=== PATIENT | female | born 1945 | race Caucasian/White ===

== ENCOUNTER → 2023-01-02 | Outpatient (CLI) | payer OTHER, SELFPAY ==
[2023-01-02 16:27] LABS: Erythrocyte Sedimentation Rate 22 mm/hr (0-30)
[2023-01-02 17:13] LABS: CRP < 2.90 mg/L (0.0-3.0); Free T3 2.6 pg/mL (2.18-3.98); LDH 205 U/L (84-246); T4 Free Direct 1.04 ng/dL (0.76-1.46); Thyroid Stim Hormone (TSH) 1.65 uIU/mL (0.358-3.74)
[2023-01-05 15:08] LABS: Endomysial Antibody IgA Negative (Negative); Immunoglobulin A 223 mg/dL (64-422); t-Transglutaminase IgA <2 U/mL (0-3)
[2023-01-07 22:07] LABS: Beef <0.10 kU/L (Class 0); Chocolate <0.10 kU/L (Class 0); Clam <0.10 kU/L (Class 0); Codfish <0.10 kU/L (Class 0); Corn <0.10 kU/L (Class 0); Egg, White <0.10 kU/L (Class 0); Egg, Whole <0.10 kU/L (Class 0); Milk (Cow) <0.10 kU/L (Class 0); Peanut <0.10 kU/L (Class 0); Pork <0.10 kU/L (Class 0); SCALLOP <0.10 kU/L (Class 0); SESAME SEED <0.10 kU/L (Class 0); Shrimp <0.10 kU/L (Class 0); Soybean <0.10 kU/L (Class 0); Walnut, (Food) <0.10 kU/L (Class 0); Wheat <0.10 kU/L (Class 0)
[2023-01-08 00:07] LABS: Angiotensin Convert Enzyme 62 U/L (14-82); Cytoplasmic Ab (C-ANCA) <1:20 titer (Neg:<1:20); Dilute Prothrombin Time (dPT) 33.3 sec (0.0-47.6); Dilute Russell Viper Venom 35.9 sec (0.0-47.0); EBV Nuclear Antigen IgG < 18.0 U/mL (0.0-17.9); Immunoglobulin A 229 mg/dL (64-422); Immunoglobulin E 26 IU/mL (6-495); Immunoglobulin G 902 mg/dL (586-1602); Immunoglobulin M 59 mg/dL (26-217); Interpretation Comment: (.); PTT-LA 36.6 sec (0.0-43.5); Perinuclear Ab (P-ANCA) <1:20 titer (Neg:<1:20); Thrombin Time 18.3 sec (0.0-23.0); dPT Confirm Ratio 1.03 Ratio (0.00-1.34)
== END | disposition home or self-care (01) ==
LOC: LAB 15:41
PROVIDERS: PCP Internal Medicine; Referring Provider Internal Medicine Gastroenterology; Visit Provider Internal Medicine Gastroenterology
DX: R13.10 Dysphagia, unspecified (principal)
CPT/HCPCS: 36415; 82164; 82784; 82785; 83516; 83615; 84439; 84443; 84481; 85652; 86003; 86005; 86140; 86255; 86256; 86644; 86664

== ENCOUNTER → 2023-02-03 | Outpatient (CLI) | payer OTHER, SELFPAY | END | disposition home or self-care (01) | LOC: RAD 12:44 | PROVIDERS: PCP Internal Medicine; Referring Provider Internal Medicine Gastroenterology; Visit Provider Internal Medicine Gastroenterology | DX: R13.10 Dysphagia, unspecified (principal) | CPT/HCPCS: 74230 ==

== ENCOUNTER 2023-04-15 09:01 | Day surgery (SDC) | payer MEDICARE, SELFPAY ==
--- NOTE | 2023-02-03 14:14 | SP.MBSS_ITS ---
Modified Barium Swallow Patient Information Study Date: 02/03/23 Study Time: 13:00 Direct Billable Minutes: 90 Total Minutes procedure & reportin Diagnosis: Dysphagia R13.10 Referring Physician: Cam Cain Reason for Referral: Objectively assess swallow function, risk for aspiration and to determine recommendations for LRD and compensatory strategies to improve safety of swallow. Medical History: Cecelia MALIK is a 77 F who was referred by Dr. Cain d/t worsening dysphagia. Patient reports coughing w/ food and drink, feeling of food being caught, burning sensation in throat and difficulty breathing when eating. Patient reports sx of GERD and dysphagia for many years, however it has gotten worse overtime. Does not take any medications including OTC. [employer] did notice significant tremors limiting ability to self feed, patient relates tremors increase w/ anxiety. Does not know what causes these tremors. Dr. Cain reported differential diagnosis for esophageal dysphagia does include eosinophilic esophagitis, esophageal ring, sliding hiatal hernia. She will undergo video swallowing study along with an upper endoscopy to evaluate upper GI tract and take biopsies (2022). She is also having some issues with tongue swelling. We will check her for sarcoidosis, amyloidosis, hemochromatosis as there infiltrative diseases along with autoimmune diseases such as lupus erythematosus, scleroderma and Sjogren syndrome. Current Diet Ordered: Regular / Thin Liquids Dentition: WNL Respiratory Status: Oxygenating on Room Air Penetration-Aspiration Scale Penetration-Aspiration Scale: OBJECTIVE ASSESSMENT OF SWALLOW FUNCTION (QUANTITATIVE ? PER TRIAL): PENETRATION / ASPIRATION SCALE (PIPER): 1 = does not enter airway 2 = enters airway/above vocal folds/ejected 3 = enters airway/above vocal folds/not ejected 4 = enters airway/contacts vocal folds/ejected 5 = enters airway/contacts vocal folds/not ejected 6 = enters airway/below vocal folds/ejected 7 = enters airway/below vocal folds/not ejected despite effort 8 = enters airway/below vocal folds/no effort VIDEOFLOROSCOPIC SCALE SCORE (PIPER): Grade I = aspiration of material that has penetrated into the laryngeal vestibule, intact cough reflex Grade II = aspiration < 10 % of the bolus, intact cough reflex Grade III = aspiration of < 10 % of the bolus, reduced cough reflex or aspiration of > 10 % of the bolus, intact cough reflex Grade IV = aspiration of > 10 % of the bolus, reduced cough reflex Penetration-Aspiration Scale Score Thin Liquid via teaspoon: Result: 1= does not enter airway Thin Liquid via teaspoon Trial 2: Result: 1= does not enter airway Thin Liquid via small single sip from: Result: 1= does not enter airway Comment: from cup Thin Liquid via small single sip from Trial 2: Result: 1= does not enter airway Comment: from cup Thin Liquid via sequential sips from: Result: 1= does not enter airway Comment: from cup Thin Liquid via single sip from: Result: 1= does not enter airway Comment: from straw [place] Thick Liquid via small single sip from: Result: 1= does not enter airway Comment: from cup Honey Thick Liquid via small single sip from: Result: 1= does not enter airway Comment: from cup Pudding via teaspoon: Result: 1= does not enter airway Cookie: Result: 1= does not enter airway Oral Phase Labial Seal: No Labial Escape Tongue Control During Bolus Hold: Posterior escape of less than half of bolus Bolus Preparation/Mastication: Timely and efficient chewing and mashing Bolus Transport/Lingual Motion: Brisk tongue motion Oral Residue: Trace residue lining oral structures Pharyngeal Phase Initiation of Pharyngeal Swallow: Bolus head in valleculae Soft Palate Elevation: No bolus between soft palate and pharyngeal wall Laryngeal Elevation: Comp. Superior move thyroid cart w/comp. apprx arytenoid cart-epig pet Anterior Hyoid Excursion: Complete anterior movement Epiglottic Movement: Complete inversion Laryngeal Vestibule Closure at Height of Swallow: Complete; no air/contrast in laryngeal vestibule Pharyngeal Stripping Wave: Present - complete Pharyngoesophageal Segment Opening: Complete distension and complete duration; no obstruction of flow Tongue Base Retraction: Wide column of contrast between tongue base & post. pharyngeal wall Pharyngeal Residue: Trace residue within or on pharyngeal structures Esophageal Phase Esophageal Clearance: Esophageal retention w/ retrograde flow below p haryngoesophageal seg. Diagnosis/Impression Diagnosis: Esophageal Dysphagia R13.14 Impression: Patient presents w/ very mild deficits in oropharyngeal swallow function. Patient has premature bolus loss (<1/2 of bolus) to the vallecula, however adequate airway closure during the study. No penetration or aspiration was observed w/ single and sequential sips w/ all consistencies. Mild oral residue which spilled to the vallecula and mild pharyngeal residue in the vallecula post deglutition which did clear w/ use of double swallow. Prominent cricopharyngeal bar at C-5 w/ no effect on pharyngoesophageal motility. Patient w/ minimal retention w/ retrograde flow in the upper esophagus observed w/ all consistencie s. Retention did not worsen w/ thicker viscosities. Recommendations Diet: Regular Textures and Thin Liquids Compensatory Strategies: Small Bites, Small Sips, Slow Rate, Multiple Swallows, Alternate bites/solids and sips/liquids, Sitting upright and Remain sitting upright for 30 minutes after PO intake Recommend Repeat Modified Barium Swallow: No Need for Skilled Speech Therapy Services: No Recommended Referrals: GI Consult Education Completed: 1. Described result of evaluation. and 2. Pt understands evaluation & agrees with goals and treatment plan. Status Active ST Patient: Active Contact Information [facility] Speech Therapy:: Franchesca Multani M.A. CCC-[employer] Speech-Language Pathologist [facility] [address] [place] [address] [email or web address] [phone]
--- NOTE | 2023-04-15 | EGD_PTH ---
PATIENT: AMANDA MALIK LOC: EN U#:[id number] AGE/SX: 77/F ROOM: RE04/15/[address]: Dr. Cam Cain DO : 1945 BED: DIS: 04/15/2023 SPEC #: [id number] RECD: 04/15/23 12:30 STATUS: DALIA REShadia #: [id number] ALAINA: 04/15/23 00:[address]: Cam Cain DEPT: SURGICAL PATHOLOGY RECD BY: Marina Briceno ENTERED: 04/15/23 13:09 SP TYPE: EGD BIOPSY CAROLYN DR: Dr. Zaina Landry MD Tissues: Esophagus, NOS Procedures: Special Stain Group II Surgery Specimen Level IV Alcian Blue/PAS (control) HEADER OPERATION: [place] [place] with biopsy and dysphagia PRE-OP DIAGNOSIS: Dysphagia TISSUE SUBMITTED: Distal esophagus biopsy MICROSCOPIC DIAGNOSIS Distal esophagus, biopsy: Fragments of gastroesophageal mucosa with chronic inflammation and changes consistent with gastroesophageal reflux disease. Focal parakeratosis. Intestinal metaplasia (goblet cell metaplasia) not identified. See comment. GISSEL:catrina 04/16/2023 COMMENT Alcian blue/PAS stain with matched control is used in the evaluation of the specimen. MICROSCOPIC DESCRIPTION Slides are reviewed. GROSS DESCRIPTION Received in fixative is one container labeled with the patient's name and designated distal esophagus biopsy. The specimen consists of multiple irregular fragments of light castlilo soft tissue that in aggregate measure 1.0 x 0.5 x 0.1 cm. The specimen is totally submitted in one cassette. / GISSEL:catrina 04/15/2023 TC:3 CPT: 22888, 82946
[2023-04-15 09:30] VITALS: BP 134/87; PULSE 77; RESP 12; TEMP 36.7; O2SAT 97; BMI 30.8
[2023-04-15] MEDS: Lactated Ringers 1,000 ML 15 ML IV (09:41)
--- NOTE | 2023-04-15 09:42 | PCM.HP.BLA ---
History and Physical Date of Admission: 04/15/23 77 F who presents to the office today for initial consult. PCP OV 3 for annual visit. Notes during visit there has been difficulty with dysphagia and hiatal hernia.? Pt reports sx of GERD and dysphagia for many years. Has gotten worse overtime. Was told at one point she had a hiatal hernia. Does not take any medications including OTC. Tries to stay away from meds. Has trouble swallowing every time she eats. Has tried taking smaller bites and chewing more. Feels a burning sensation in throat from time to time. No lower GI sx. Bowels are normal with some constipation every once in a while. ? ROS Const Constitutional: No fatigue ENT ENT: Positive for difficulty swallowing Gastro GI: Positive for difficulty swallowing; No abdominal pain, belching, bloating, change in bowel habits, change in stool character, coffee ground emesis, constipation, cramping, diarrhea, heartburn, feeling full early, excessive flatus, incontinent of stools, Vomiting blood/hematemesis, Blood in stool, loose stools, Black,tarry stools, nausea/dyspepsia, pain with swallowing, vomiting or other Musc Musculoskeletal: Positive for joint pain, stiffness, Arthritis and sciatica Skin Skin: No yellowing of the eye or itchy eyes Psych Psychiatric: Positive for anxiety and No depression Endo Endocrine: No fatigue Aller/Imm Allergy/Immunologic: No itchy eyes Ayan/Lymp Hematologic/Lymphatic: No easy bleeding or easy bruising Exam Const General: cooperative and comfortable Nutritional Appearance: average body habitus and well nourished [facility] Head: normal to inspection Ears: hearing grossly normal bilaterally Nose: external nose normal Face and sinus: normal facial exam Mouth: oral mucosae normal Throat: posterior oropharynx normal Eyes General: appearance normal, both eyes and all related structures Neck Neck: normal visual inspection Chest Chest palpation & inspection: normal inspection of the chest and normal palpation of entire chest wall Resp Effort & Inspection: normal respiratory effort Auscultation: Bilateral: Clear to Auscultation Cardio Palpation: normal PMI Rate: regular rate Rhythm: regular rhythm GI Inspection: normal to inspection Auscultation: normal bowel sounds Percussion: normal to percussion Palpation: no hepatosplenomegaly Skin General: no rashes or lesions noted Neuro General: patient alert Extrem General: normal to inspection Psych Affect: normal affect Assessment and Plan Assessment and Plan (1) Dysphagia: Status: Acute Plan: Differential diagnosis for esophageal dysphagia does include eosinophilic esophagitis, esophageal ring, sliding hiatal hernia. She will undergo video swallowing study along with an upper endoscopy to evaluate upper GI tract and take biopsies. She is also having some issues with tongue swelling. We will check her for sarcoidosis, amyloidosis, hemochromatosis as there infiltrative diseases along with autoimmune diseases such as lupus erythematosus, scleroderma and Sjogren syndrome. Orders: Orders CRP Today R13.10 - Dysphagia, unspecified LDH Today R13.10 - Dysphagia, unspecified Erythrocyte Sed Rate Today R13.10 - Dysphagia, unspecified Angiotensin Convert Enzyme Today R13.10 - Dysphagia, unspecified ANCA Today R13.10 - Dysphagia, unspecified Celiac Disease Profile Today R13.10 - Dysphagia, unspecified CMV Antibody IgG Today R13.10 - Dysphagia, unspecified EBV Nuclear Antigen IgG Today R13.10 - Dysphagia, unspecified Immunoglobulin A Today R13.10 - Dysphagia, unspecified Immunoglobulin E Today R13.10 - Dysphagia, unspecified Immunoglobulin G Today R13.10 - Dysphagia, unspecified Immunoglobulin M Today R13.10 - Dysphagia, unspecified Lupus Anticoagulant Comp Today R13.10 - Dysphagia, unspecified Free T3 Today R13.10 - Dysphagia, unspecified T4 Free Direct Today R13.10 - Dysphagia, unspecified Thyroid Stim Hormone (TSH) Today R13.10 - Dysphagia, unspecified Allergen, Rast Food Profile Today R13.10 - Dysphagia, unspecified Allergen, Food Profile Today R13.10 - Dysphagia, unspecified Swallowing Function w/Video Today R13.10 - Dysphagia, unspecified I have examined the patient and the H&P has been reviewed. There are no clinical changes since date of exam.
--- NOTE | 2023-04-15 10:46 | OP.CCLET_ITS ---
04/15/2023 [facility] Re : Upper GI endoscopy procedure for Renee Guevara Lashonr This procedure was performed on Saturday, April 15, 2023. My impressions and recommendations are as follows: Impressions : - LA Grade B reflux esophagitis with no bleeding. Biopsied. - Moderate Schatzki ring. Dilated. - Small hiatal hernia. - No gross lesions in the second portion of the duodenum. Recommendations : - Discharge patient to home. - Patient has a contact number available for emergencies. The signs and symptoms of potential delayed complications were discussed with the patient. Return to normal activities tomorrow. Written discharge instructions were provided to the patient. - Resume regular diet. - Continue present medications. - Await pathology results. - Use Protonix (pantoprazole) 40 mg PO BID for 8 weeks. My findings are described in the full procedure note, which is enclosed. If I can be of further assistance, please feel free to contact me at . Sincerely, Cam Cain, 04/15/2023 10:45:35 AM This report has been signed electronically.
--- NOTE | 2023-04-15 10:46 | OP.EGD_ITS ---
Patient Name: Renee Guevara Procedure Date: 04/15/2023 10:28 AM Date of : 1945 Age: 77 Procedure: Upper GI endoscopy Indications: Dysphagia Providers: Cam Cain DO Medicines: Monitored Anesthesia Care Patient Profile: This is a 77 year old female. Refer to note in patient chart for documentation of history and physical. Patient has symptoms of chronic dysphagia and dysphagia with solids. Complications: No immediate complications. Procedure: Pre-Anesthesia Assessment: - Prior to the procedure, a History and Physical was performed, and patient medications and allergies were reviewed. The risks and benefits of the procedure and the sedation options and risks were discussed with the patient. All questions were answered and informed consent was obtained. Patient identification and proposed procedure were verified by the physician in the pre-procedure area. Mental Status Examination: alert and oriented. Airway Examination: normal oropharyngeal airway and neck mobility. Prophylactic Antibiotics: The patient does not require prophylactic antibiotics. Prior Anticoagulants: The patient has taken no anticoagulant or antiplatelet agents. After reviewing the risks and benefits, the patient was deemed in satisfactory condition to undergo the procedure. The anesthesia plan was to use monitored anesthesia care (MAC). Immediately prior to administration of medications, the patient was re-assessed for adequacy to receive sedatives. The heart rate, respiratory rate, oxygen saturations, blood pressure, adequacy of pulmonary ventilation, and response to care were monitored throughout the procedure. The physical status of the patient was re-assessed after the procedure. After obtaining informed consent, the endoscope was passed under direct vision. Throughout the procedure, the patient's blood pressure, pulse, and oxygen saturations were monitored continuously. The gastroscope was introduced through the mouth, and advanced to the second part of duodenum. The upper GI endoscopy was accomplished without difficulty. The patient tolerated the procedure well. Scope In: 10:35:08 AM Scope Out: 10:39:42 AM Total Procedure Duration Time 0 hours 4 minutes 34 seconds Findings: LA Grade B (one or more mucosal breaks greater than 5 mm, not extending between the tops of two mucosal folds) esophagitis with no bleeding was found 38 to 40 cm from the incisors. Biopsies were taken with a cold forceps for histology. Verification of patient identification for the specimen was done. Estimated blood loss was minimal. A moderate Schatzki ring was found at the gastroesophageal junction. A guidewire was placed and the scope was withdrawn. Dilation was performed with a Savary dilator with no resistance at 54 Fr. The dilation site was examined and showed moderate improvement in luminal narrowing. Estimated blood loss was minimal. A small hiatal hernia was present. No other significant abnormalities were identified in a careful examination of the stomach. No gross lesions were noted in the second portion of the duodenum. Impression: - LA Grade B reflux esophagitis with no bleeding. Biopsied. - Moderate Schatzki ring. Dilated. - Small hiatal hernia. - No gross lesions in the second portion of the duodenum. Recommendation: - Discharge patient to home. - Patient has a contact number available for emergencies. The signs and symptoms of potential delayed complications were discussed with the patient. Return to normal activities tomorrow. Written discharge instructions were provided to the patient. - Resume regular diet. - Continue present medications. - Await pathology results. - Use Protonix (pantoprazole) 40 mg PO BID for 8 weeks. Procedure Code(s): --- Professional --- 80436, Esophagogastroduodenoscopy, flexible, transoral; with insertion of guide wire followed by passage of dilator(s) through esophagus over guide wire 26419, 59, Esophagogastroduodenoscopy, flexible, transoral; with biopsy, single or multiple CPT copyright 2021 [employer]. All rights reserved. The codes documented in this report are preliminary and upon maple syrup maker review may be revised to meet current compliance requirements. Cam Cain DO 04/15/2023 10:45:35 AM This report has been signed electronically. Number of Addenda: 0 Note Initiated On: 04/15/2023 10:28 AM
[2023-04-15 10:47] VITALS: BP 102/58; BP 134/87; PULSE 69; RESP 16; TEMP 36.6; O2SAT 97
[2023-04-15 10:50] VITALS: BP 115/69; BP 134/87; PULSE 71; RESP 16; O2SAT 95
[2023-04-15 11:00] VITALS: BP 110/60; BP 134/87; PULSE 67; RESP 16; TEMP 36.6; O2SAT 95
[2023-04-15 11:21] VITALS: BP 134/87
== END 2023-04-15 11:25 | disposition home or self-care (01) ==
LOC: EN 09:09 → AC 09:14
PROVIDERS: PCP Internal Medicine; Referring Provider Internal Medicine; Visit Provider Internal Medicine Gastroenterology
PROC: 0DJ08ZZ Inspection of Upper Intestinal Tract, Via Natural or Artificial Opening Endoscopic (ICD-10-PCS; CPT 43235; principal; 2023-04-15 10:10)
DX: K21.00 Gastro-esophageal reflux disease with esophagitis, without bleeding (principal); K22.2 Esophageal obstruction; K44.9 Diaphragmatic hernia without obstruction or gangrene; I10 Essential (primary) hypertension; F32.A Depression, unspecified; F41.9 Anxiety disorder, unspecified; R13.10 Dysphagia, unspecified; Z79.899 Other long term (current) drug therapy; Z87.891 Personal history of nicotine dependence
CPT/HCPCS: 43248; 43239; 88305; 88313; 92611; J7120; C1769; J2405

== ENCOUNTER 2024-03-08 10:37 | Day surgery (SDC) | payer MEDICARE, SELFPAY ==
[2024-03-08] VITALS (8 sets, daily range): BP systolic 94–136; BP diastolic 59–78; PULSE 84–91; RESP 16; TEMP 36.4–36.6; O2SAT 96–98; BMI 29.2
[2024-03-08] MEDS: Lactated Ringers 1,000 ML 15 ML IV (11:10)
--- NOTE | 2024-03-08 11:43 | PRE.ANES_ITS ---
ASA Classification* ASA Classification ASA Classification: 2 Assessment & Plan Anesthesia* Anesthesia Assessment Anesthesia Assessment: Discussed sedation and/or anesthesia options, risks, benefits, and alternatives with patient/parents/legal guardian/POA. Questions invited. The patient/parents/legal guardian/POA seems to understand and agrees to proceed with anesthesia plan. Reviewed the physical assessment, medical history, allergy history and patient home medications list prior to surgery/procedure/anesthetic and documented any changes. Performed airway and anesthesia risk assessments. Anesthesia Type Anesthesia Type: MAC History Source History Obtained from:: Patient and Chart Anesthesia Focused Assessment* Temperature: 98 F Pulse Rate: 91 Blood Pressure: 136/78 Respiratory Rate: 16 Pulse Ox: 98 Oxygen Delivery Method: Room Air Airway Assessment Mouth opens: >3 cm Mallampati Score: II Teeth Condition: Caps/Crowns (Multiple crowns and caps. All tight.) Neck Range of motion (ROM): Limited ROM (Slight decrease in extension) Focused Labs Anesthesia Preop lab: CBC CHEMISTRY TSH 1.65 uIU/mL (0.358-3.74) 01/02/23 15:44 COAG Pre-Assessment Diagnosis/Proposed Procedure Planned Operative Procedure(s): CSCOPE Anesthesia History Anesthesia History - head of operation and logistics: Anesthesia History - head of operation and logistics Hx Hospitalization No 03/04/24 09:23 Any Problems With Anesthesia No 03/04/24 09:23 Cholinesterase deficiency No 03/04/24 09:23 You/Your Family Experience No 03/04/24 09:23 fever (hyperthermia) with Relationship Recent Exposure to Contagious No 03/08/24 11:06 Disease Does patient have nerve No 03/04/24 09:23 stimulator Patient instructed to have device shut off --Does patient have Pacemaker No 03/08/24 11:06 or ICD? When Was Last Pacemaker Check QUESTION #4 FULL TEXT: You/Your Family Experience fever (hyperthermia) with Anesthesia Last Oral Intake Last Oral intake: Last Oral Intake NPO since 16:00 03/08/24 11:06 Meds taken in AM with sips of Yes 03/08/24 11:06 water? Meds patient instructed to PROTONIX,LEXAPRO 03/08/24 11:06 take am of surgery Any additional information?: Yes Meds taken in AM with sips of water?: Yes PONV PONV - head of operation and logistics: PONV - head of operation and logistics Female Yes 03/04/24 09:23 HX of Motion Sickness No 03/04/24 09:23 HX of N/V After Surgery No 03/04/24 09:23 Non-Smoker Yes 03/04/24 09:23 Duration of Surgery greater No 03/04/24 09:23 than 60 minutes Number of Risk Factors 2 03/04/24 09:23 PONV Score Moderate Risk 03/04/24 09:23 Height & Weight Height & Weight: Anesthesia: Height & Weight Height 5 ft 3 in 03/08/24 11:06 Weight: 75 kg 03/08/24 11:06 Body Mass Index (BMI) 29.2 03/08/24 11:06 Respiratory Assessment Respiratory Assessment - head of operation and logistics: Respiratory Tract Infection Hx - head of operation and logistics Hx Respiratory Tract Infection No 03/04/24 09:23 STOP Sleep Apnea STOP Sleep Apnea - head of operation and logistics: STOP Sleep Apnea - head of operation and logistics Hx Hypertension Yes: CONTROLLED ON MED 03/04/24 09:23 Hx Sleep Apnea No 03/04/24 09:23 CPAP No 03/04/24 09:23 BIPAP No 03/04/24 09:23 Do you snore loudly (louder No 03/04/24 09:23 than talking or can be heard Do you often feel tired/ No 03/04/24 09:23 fatigued/ sleepy during daytime? Has anyone observed you stop No 03/04/24 09:23 breathing during sleep? STOP Results Negative 03/04/24 09:23 QUESTION #5 FULL TEXT : Do you snore loudly (louder than talking or can be heard through closed doors)? Tobacco Use History Tobacco Use History - head of operation and logistics: Tobacco Use History - head of operation and logistics Tobacco Use Smoking Status Former smoker 03/04/24 09:23 Hx Tobacco Use No 03/04/24 09:23 Years Smoking Packs Smoked per Day Smoking Cessation Date was No - quit smoking greater 03/04/24 09:23 within the last 15 years than 15 years ago Hx Smoking Cessation Date 07/13/82 03/04/24 09:23 Hx Smoking Cessation Counseling Hematologic Medial History Hematologic Hx - head of operation and logistics: Hematologic Medical Hx - tong hooker Hx of Blood Transfusion No 03/04/24 09:23 Hx of Transfusion in last 3 No 03/04/24 09:23 Months Date of Last Transfusion (if within last 3 months) Ever experience any problems No 03/04/24 09:23 with transfusion(s)? Specify any problems Hx of Preganancy in last 3 No 03/04/24 09:23 Months Nurse Filling Out Transfusion DSCHRIBER 03/04/24 09:23 & Questions: Date: 03/04/24 03/04/24 09:23 Time: :03/04/24 09:23 Patient unable to answer at this time (ie. confused, unrespo /Reproduction History /Reproductive History - head of operation and logistics: /Reproductive Hx- head of operation and logistics Hx Now No 03/04/24 09:23 Gestational Age (in weeks): EDC: Hx Hx Para Hx Section SAB No 03/04/24 09:23 Active Medications Active Medications: Current Medications Generic Name Dose Route Start Last Admin Trade Name Freq PRN Reason Stop Dose Admin Lactated Ringer's 1,000 mls @ 15 mls/hr 03/08/24 11:00 03/08/24 11:10 IV 15 mls/hr .Q48H MAX Administration PFSH Medical History (Updated 03/04/24 @ 09:31 by Raquel Pratt) Constipation Essential tremor Wears hearing aid Wears glasses Depression Anxiety Arthritis History of hiatal hernia Gastric reflux Former smoker Shortness of breath on exertion History of edema History of echocardiogram History of stress test Cardiology follow-up encounter History of irregular heartbeat Hypertension Osteoporosis Dysphagia Home Medications ?Medication ?Instructions ?Recorded ?Last Taken ?Type atorvastatin 20 mg tablet 20 mg PO DAILY 10/08/22 03/07/24 History cholecalciferol (vitamin D3) 25 37.5 mcg PO DAILY 10/08/22 03/07/24 History mcg (1,000 unit) capsule escitalopram oxalate 20 mg tablet 20 mg PO DAILY 10/08/22 03/08/24 History triamterene 37.5 1 cap PO DAILY 10/08/22 03/07/24 History mg-hydrochlorothiazide 25 mg capsule pantoprazole 20 mg tablet,delayed 20 mg PO DAILY #90 tabs 05/28/23 03/08/24 Rx release peg 3350-electrolytes 236 240 ml PO Q10M #4,000 mL 02/16/24 03/07/24 Rx gram-22.74 gram-6.74 gram-5.86 gram solution (Golytely) Allergy/AdvReac Type Severity Reaction Status Date / Time metoprolol (From Toprol XL) Allergy Severe Other Verified 03/08/24 11:04 morphine Allergy Severe Rash Verified 03/08/24 11:04 Surgical History (Updated 03/04/24 @ 09:31 by Raquel Pratt) Hx of colonoscopy with polypectomy Hx of esophagogastroduodenoscopy History of cardiac catheterization History of laparoscopic cholecystectomy History of bunionectomy Hx of hemorrhoidectomy Hx of tubal ligation Hx of surgical procedure Social History Smoking Status: Former smoker Review of Systems (Anesthesia) ROS Narrative System reviewed and no additional complaints, except as documented.
--- NOTE | 2024-03-08 12:00 | COLBX_PTH ---
PATIENT: AMANDA MALIK LOC: EN U#:[id number] AGE/SX: 78/F ROOM: RE03/08/[address]: Dr. Cam Cain DO : 1945 BED: DIS: 03/08/2024 SPEC #: [id number] RECD: 03/08/24 18:11 STATUS: DALIA REShadia #: [id number] ALAINA: 03/08/24 12:[address]: Cam Cain DEPT: SURGICAL PATHOLOGY RECD BY: Veronica Merlos ENTERED: 03/09/24 11:50 SP TYPE: COLON BX CAROLYN DR: Dr. Zaina Landry MD Tissues: Transverse colon Procedures: Surgery Specimen Level IV HEADER OPERATION: Colonoscopy with polypectomy PRE-OP DIAGNOSIS: Screening TISSUE SUBMITTED: Transverse colon polyp MICROSCOPIC DIAGNOSIS Transverse colon polyp, polypectomy: Fragments of tubular adenoma. GISSEL/ 03/10/2024 MICROSCOPIC DESCRIPTION Slides are reviewed. GROSS DESCRIPTION Received in fixative is one container labeled with the patient's name and designated Transverse colon polyp. The specimen consists of two irregular fragments of light castillo soft tissue that in aggregate measure 0.8 x 0.2 x 0.1 cm. The specimen is totally submitted in one cassette. 03/09/2024 TC:1 CPT:92627
--- NOTE | 2024-03-08 12:40 | PCM.HP.BLA ---
History and Physical Date of Admission: 03/08/24 AMANDA MALIK (KAREN), is a 78 F who presents to the office today for PCP OV 09.29.22 as annual reporting difficulty with dysphagia and history of hiatal hernia *BGI established 01.02.23 GERD and dysphagia has been present to many years with worsening. Prefers to avoid medication use. Dysphagia with food. ? Biochemical ESR, CRP, LDH, LUIS, TSH, T3, T4, RAST, GAME, ANCA, HEMANTH comp, celiac, EBV without pertinent abnormality. ? CMV + ? Modified Barium 02.03.23 esophageal dysphagia. No need for ST. ? EGD 04.15.23 LA Grade B esophagitis, focal parakeratosis; moderate Schatzki ring, Savary 54F; small hiatal hernia. Metaplasia neg. OC 05.28.23 reports that she is doing very well at this time. Her PPI prescription was not refilled; no current issues with reflux. Reports high risk of colon cancer, mother diagnosed age 61. Her last colonoscopy with one TA and one benign polyp removed. ROS Const Constitutional: No fatigue ENT ENT: Positive for difficulty swallowing Gastro GI: Positive for difficulty swallowing; No abdominal pain, belching, bloating, change in bowel habits, change in stool character, coffee ground emesis, constipation, cramping, diarrhea, heartburn, feeling full early, excessive flatus, incontinent of stools, Vomiting blood/hematemesis, Blood in stool, loose stools, Black,tarry stools, nausea/dyspepsia, pain with swallowing, vomiting or other Musc Musculoskeletal: Positive for joint pain, stiffness, Arthritis and sciatica Skin Skin: No yellowing of the eye or itchy eyes Psych Psychiatric: Positive for anxiety and No depression Endo Endocrine: No fatigue Aller/Imm Allergy/Immunologic: No itchy eyes Ayan/Lymp Hematologic/Lymphatic: No easy bleeding or easy bruising Exam Const General: cooperative and comfortable Nutritional Appearance: average body habitus and well nourished HENMT Head: normal to inspection Ears: hearing grossly normal bilaterally Nose: external nose normal Face and sinus: normal facial exam Mouth: oral mucosae normal Throat: posterior oropharynx normal Eyes General: appearance normal, both eyes and all related structures Neck Neck: normal visual inspection Chest Chest palpation & inspection: normal inspection of the chest and normal palpation of entire chest wall Resp Effort & Inspection: normal respiratory effort Auscultation: Bilateral: Clear to Auscultation Cardio Palpation: normal PMI Rate: regular rate Rhythm: regular rhythm GI Inspection: normal to inspection Auscultation: normal bowel sounds Percussion: normal to percussion Palpation: no hepatosplenomegaly Skin General: no rashes or lesions noted Neuro General: patient alert Extrem General: normal to inspection Psych Affect: normal affect Quality Reporting Tobacco Screening ([facility]) Smoking Status: Former smoker Assessment and Plan Assessment and Plan (1) Dysphagia: Status: Resolved Qualifiers: Dysphagia type: esophageal phase Qualified Code(s): R13.19 - Other dysphagia Plan: She has eosinophilic esophagitis. She underwent dilation with 45 croatian dilator. She will be on pantoprazole once a day. I have examined the patient and the H&P has been reviewed. There are no clinical changes since date of exam.
--- NOTE | 2024-03-08 13:29 | OP.COLON_ITS ---
Patient Name: Renee Guevara Procedure Date: 03/08/2024 12:41 PM Date of : 1945 Age: 78 Procedure: Colonoscopy Indications: Screening for colorectal malignant neoplasm Providers: Cam Cain DO Medicines: Monitored Anesthesia Care Patient Profile: This is a 78 year old female. Refer to note in patient chart for documentation of history and physical. Last Colonoscopy: 5 years ago. Complications: No immediate complications. Procedure: Pre-Anesthesia Assessment: - Prior to the procedure, a History and Physical was performed, and patient medications and allergies were reviewed. The patient is competent. The risks and benefits of the procedure and the sedation options and risks were discussed with the patient. All questions were answered and informed consent was obtained. Patient identification and proposed procedure were verified by the physician in the pre-procedure area. Mental Status Examination: alert and oriented. Airway Examination: normal oropharyngeal airway and neck mobility. Respiratory Examination: clear to auscultation. CV Examination: normal. Prophylactic Antibiotics: The patient does not require prophylactic antibiotics. Prior Anticoagulants: The patient has taken no anticoagulant or antiplatelet agents. ASA Grade Assessment: II - A patient with mild systemic disease. After reviewing the risks and benefits, the patient was deemed in satisfactory condition to undergo the procedure. The anesthesia plan was to use monitored anesthesia care (MAC). Immediately prior to administration of medications, the patient was re-assessed for adequacy to receive sedatives. The heart rate, respiratory rate, oxygen saturations, blood pressure, adequacy of pulmonary ventilation, and response to care were monitored throughout the procedure. The physical status of the patient was re-assessed after the procedure. After I obtained informed consent, the scope was passed under direct vision. Throughout the procedure, the patient's blood pressure, pulse, and oxygen saturations were monitored continuously. The Colonoscope was introduced through the anus and advanced to the cecum, identified by the appendiceal orifice, ileocecal valve and palpation. The colonoscopy was performed without difficulty. The patient tolerated the procedure well. The quality of the bowel preparation was adequate. The ileocecal valve, appendiceal orifice, and rectum were photographed. Scope In: 12:54:01 PM Scope Withdrawal Time 0 hours 7 minutes 2 seconds Scope Out: 1:20:35 PM Total Procedure Duration Time 0 hours 26 minutes 34 seconds Findings: The perianal and digital rectal examinations were normal. Multiple small and large-mouthed diverticula were found in the recto-sigmoid colon, sigmoid colon, descending colon, splenic flexure, hepatic flexure and ascending colon. A 6 mm polyp was found in the transverse colon. The polyp was sessile. The polyp was removed with a cold snare. Resection and retrieval were complete. Verification of patient identification for the specimen was done. Estimated blood loss was minimal. The exam was otherwise without abnormality on direct and retroflexion views. Impression: - Diverticulosis in the recto-sigmoid colon, in the sigmoid colon, in the descending colon, at the splenic flexure, at the hepatic flexure and in the ascending colon. - One 6 mm polyp in the transverse colon, removed with a cold snare. Resected and retrieved. - The examination was otherwise normal on direct and retroflexion views. Recommendation: - Discharge patient to home. - Resume previous diet. - Continue present medications. - Await pathology results. - Repeat colonoscopy in 5 years for surveillance. Procedure Code(s): --- Professional --- 97629, Colonoscopy, flexible; with removal of tumor(s), polyp(s), or other lesion(s) by snare technique CPT copyright 2021 [employer]. All rights reserved. The codes documented in this report are preliminary and upon telephone interceptor operator review may be revised to meet current compliance requirements. Cam Cain DO 03/08/2024 1:29:34 PM This report has been signed electronically. Number of Addenda: 0 Note Initiated On: 03/08/2024 12:41 PM
--- NOTE | 2024-03-08 13:30 | PCM.POST.ANE ---
Anesthesia: Postop Eval I Current Vital Signs Temperature: 97.6 F Pulse Rate: 84 Blood Pressure: 94/59 Respiratory Rate: 16 Pulse Ox: 96 Oxygen Delivery Method: Room Air Assessment Airway patent: Yes Spontaneous unlabored respirations: Yes Mental status: Awake and Calm nausea: No Vomiting: No Anesthesia Complication: No Fluid Hydration Crystalloid volume administer (ml): 700 Total IV fluid infused: 700 Progress Note Anesthesia document: Postop Eval 1 completed: Yes
--- NOTE | 2024-03-08 13:30 | OP.CCLET_ITS ---
03/08/2024 [facility] Re : Colonoscopy procedure for Renee Guevara Dear This procedure was performed on Friday, March 08, 2024. My impressions and recommendations are as follows: Impressions : - Diverticulosis in the recto-sigmoid colon, in the sigmoid colon, in the descending colon, at the splenic flexure, at the hepatic flexure and in the ascending colon. - One 6 mm polyp in the transverse colon, removed with a cold snare. Resected and retrieved. - The examination was otherwise normal on direct and retroflexion views. Recommendations : - Discharge patient to home. - Resume previous diet. - Continue present medications. - Await pathology results. - Repeat colonoscopy in 5 years for surveillance. My findings are described in the full procedure note, which is enclosed. If I can be of further assistance, please feel free to contact me at . Sincerely, Cam Cain, 03/08/2024 1:29:34 PM This report has been signed electronically.
--- NOTE | 2024-03-08 14:20 | POSTOPAN2_ITS ---
Anesthesia Postop Eval I Sum Postop Eval Completion status Anesthesia document: Postop Eval 1 completed: Yes Anesthesia Postop Eval I Summary Anesthesia Postop Eval I Summary: Anesthesia Postop Eval I: Assessment Summary Airway patent Yes 03/08/24 13:32 INDEPENDENT VIDEO PRODUCER.[email or web address] Spontaneous unlabored Yes 03/08/24 13:32 INDEPENDENT VIDEO PRODUCER.GDOTT respirations Mental status Awake,Calm 03/08/24 13:32 INDEPENDENT VIDEO PRODUCER.GDOTT nausea No 03/08/24 13:32 INDEPENDENT VIDEO PRODUCER.GDOTT Vomiting No 03/08/24 13:32 INDEPENDENT VIDEO PRODUCER.GDOTT Anesthesia Postop Eval I: Fluid Summary Crystalloid volume administer 700 03/08/24 13:32 INDEPENDENT VIDEO PRODUCER.GDOTT (ml) Colloids volume administered ( ml) Blood Product volume administered (ml) Total IV fluid infused 700 03/08/24 13:32 INDEPENDENT VIDEO PRODUCER.GDOTT Anesthesia Postop Eval I: Summary Notes Anesthesia Complication No 03/08/24 13:32 INDEPENDENT VIDEO PRODUCER.GDOTT Anesthesia Complication Comment: Post-operative progress note Anesthesia: Postop Eval II Evaluation Mental status: Awake and Calm Pain Level: 0 nausea: No Vomiting: No Complications Anesthesia Complication: No
--- NOTE | 2024-03-08 14:20 | PCM.POSTANE2 ---
Anesthesia Postop Eval I Sum Postop Eval Completion status Anesthesia document: Postop Eval 1 completed: Yes Anesthesia Postop Eval I Summary Anesthesia Postop Eval I Summary: Anesthesia Postop Eval I: Assessment Summary Airway patent Yes 03/08/24 13:32 UNHAIRING MACHINE OPERATOR.[email or web address] Spontaneous unlabored Yes 03/08/24 13:32 UNHAIRING MACHINE OPERATOR.GDOTT respirations Mental status Awake,Calm 03/08/24 13:32 UNHAIRING MACHINE OPERATOR.GDOTT nausea No 03/08/24 13:32 UNHAIRING MACHINE OPERATOR.GDOTT Vomiting No 03/08/24 13:32 UNHAIRING MACHINE OPERATOR.GDOTT Anesthesia Postop Eval I: Fluid Summary Crystalloid volume administer 700 03/08/24 13:32 UNHAIRING MACHINE OPERATOR.GDOTT (ml) Colloids volume administered ( ml) Blood Product volume administered (ml) Total IV fluid infused 700 03/08/24 13:32 UNHAIRING MACHINE OPERATOR.GDOTT Anesthesia Postop Eval I: Summary Notes Anesthesia Complication No 03/08/24 13:32 UNHAIRING MACHINE OPERATOR.GDOTT Anesthesia Complication Comment: Post-operative progress note Anesthesia: Postop Eval II Evaluation Mental status: Awake and Calm Pain Level: 0 nausea: No Vomiting: No Complications Anesthesia Complication: No
== END 2024-03-08 13:58 | disposition home or self-care (01) ==
LOC: EN 10:39 → AC 10:40
PROVIDERS: PCP Internal Medicine; Referring Provider Internal Medicine; Visit Provider Internal Medicine Gastroenterology
PROC: 0DJD8ZZ Inspection of Lower Intestinal Tract, Via Natural or Artificial Opening Endoscopic (ICD-10-PCS; CPT 45378; principal; 2024-03-08 11:55)
DX: Z12.11 Encounter for screening for malignant neoplasm of colon (principal); D12.3 Benign neoplasm of transverse colon; R13.10 Dysphagia, unspecified; K57.30 Diverticulosis of large intestine without perforation or abscess without bleeding; F41.9 Anxiety disorder, unspecified; F32.A Depression, unspecified; K21.9 Gastro-esophageal reflux disease without esophagitis; I10 Essential (primary) hypertension; Z79.899 Other long term (current) drug therapy; Z87.891 Personal history of nicotine dependence
CPT/HCPCS: 45385; 88305; J7120

== ENCOUNTER → 2024-05-31 | Outpatient (CLI) | payer MEDICARE, SELFPAY ==
[2024-05-31 12:16] LABS: Absolute Lymphocyte Count 3.75 X10^3/uL (0.83-4.51); Absolute Neutrophil Count 5.5 X10^3/uL (2.0-7.7); Basophil# 0.08 X10^3/uL; Basophil% 0.8 % (0-1); Eosinophil# 0.09 X10^3/uL; Eosinophils% 0.9 % (0-5); Hematocrit 39.5 % (37-47); Hemoglobin 12.9 g/dL (12.0-15.0); Lymphocyte # 3.75 X10^3/ul (0.83-4.51); Lymphocyte % 36.7 % (19-41); Mean Corp Hgb Conc 32.7 g/dL (32-36); Mean Corpuscular Hgb 29.8 pg (27.0-32.0); Mean Corpuscular Volume 91.2 fL (81-99); Mean Platelet Vol. 9.5 fl (6.2-12.0); Monocyte# 0.78 X10^3/uL; Monocyte% 7.6 % (0-10); NRBC Flagged by Analyzer 0 % (0-5); Neutrophil # 5.46 X10^3/uL (2.7-7.7); Neutrophil % 53.5 % (47-70); Platelet Count 302 K/mm3 (150-450); RBC Distribution Width CV 13.6 % (11.6-14.6); Red Blood Count 4.33 M/mm3 (4.2-5.4); White Blood Count 10.2 K/mm3 (4.4-11.0)
== END | disposition home or self-care (01) ==
LOC: LAB 11:39
PROVIDERS: PCP Internal Medicine; Referring Provider Student in an Organized Health Care Education/Training Program; Visit Provider Student in an Organized Health Care Education/Training Program
DX: R63.4 Abnormal weight loss (principal)
CPT/HCPCS: 36415; 85025

== ENCOUNTER 2024-07-27 08:09 | Day surgery (SDC) | payer MEDICARE, SELFPAY ==
--- NOTE | 2024-07-25 15:57 | PAT.ANE_ITS ---
Pre-Assessment Diagnosis/Proposed Procedure Planned Operative Procedure(s): EGD Anesthesia History Anesthesia History - supervisor engraving: Anesthesia History - supervisor engraving Hx Hospitalization No 07/25/24 15:06 Any Problems With Anesthesia No 07/25/24 15:06 Cholinesterase deficiency No 07/25/24 15:06 You/Your Family Experience No 07/25/24 15:06 fever (hyperthermia) with Relationship Recent Exposure to Contagious No 03/08/24 11:06 Disease Does patient have nerve No 07/25/24 15:06 stimulator Patient instructed to have device shut off --Does patient have Pacemaker or ICD? When Was Last Pacemaker Check QUESTION #4 FULL TEXT: You/Your Family Experience fever (hyperthermia) with Anesthesia Last Oral Intake Last Oral intake: Last Oral Intake NPO since Meds taken in AM with sips of water? Meds patient instructed to take am of surgery PONV PONV - supervisor engraving: PONV - supervisor engraving Female Yes 07/25/24 15:06 HX of Motion Sickness No 07/25/24 15:06 HX of N/V After Surgery No 07/25/24 15:06 Non-Smoker Yes 07/25/24 15:06 Duration of Surgery greater No 07/25/24 15:06 than 60 minutes Number of Risk Factors 2 07/25/24 15:06 PONV Score Moderate Risk 07/25/24 15:06 Height & Weight Height & Weight: Anesthesia: Height & Weight Height 5 ft 3 in 03/08/24 11:06 Respiratory Assessment Respiratory Assessment - supervisor engraving: Respiratory Tract Infection Hx - supervisor engraving Hx Respiratory Tract Infection No 07/25/24 15:06 STOP Sleep Apnea STOP Sleep Apnea - supervisor engraving: STOP Sleep Apnea - supervisor engraving Hx Hypertension Yes: CONTROLLED ON MED 07/25/24 15:06 Hx Sleep Apnea No 07/25/24 15:06 CPAP No 07/25/24 15:06 BIPAP No 07/25/24 15:06 Do you snore loudly (louder No 07/25/24 15:06 than talking or can be heard Do you often feel tired/ No 07/25/24 15:06 fatigued/ sleepy during daytime? Has anyone observed you stop No 07/25/24 15:06 breathing during sleep? STOP Results Negative 07/25/24 15:06 QUESTION #5 FULL TEXT : Do you snore loudly (louder than talking or can be heard through closed doors)? Tobacco Use History Tobacco Use History - supervisor engraving: Tobacco Use History - supervisor engraving Tobacco Use Smoking Status Former smoker 07/25/24 15:06 Hx Tobacco Use No 07/25/24 15:06 Years Smoking Packs Smoked per Day Smoking Cessation Date was No - quit smoking greater 07/25/24 15:06 within the last 15 years than 15 years ago Hx Smoking Cessation Date 07/13/82 07/25/24 15:06 Hx Smoking Cessation Counseling Hematologic Medial History Hematologic Hx - supervisor engraving: Hematologic Medical Hx - presser machine Hx of Blood Transfusion No 07/25/24 15:06 Hx of Transfusion in last 3 No 07/25/24 15:06 Months Date of Last Transfusion (if within last 3 months) Ever experience any problems No 07/25/24 15:06 with transfusion(s)? Specify any problems Hx of Preganancy in last 3 N/A 07/25/24 15:06 Months Nurse Filling Out Transfusion NBUCHER 07/25/24 15:06 & Questions: Date: 07/25/24 07/25/24 15:06 Time: 15:07 07/25/24 15:06 Patient unable to answer at this time (ie. confused, unrespo /Reproduction History /Reproductive History - supervisor engraving: /Reproductive Hx- supervisor engraving Hx Now Gestational Age (in weeks): EDC: Hx Hx Para Hx Section SAB No 07/25/24 15:06 PFSH Medical History (Updated 07/25/24 @ 15:09 by Mey Choi) Constipation Essential tremor Wears hearing aid Wears glasses Depression Anxiety Arthritis History of hiatal hernia Gastric reflux Former smoker Shortness of breath on exertion History of edema History of echocardiogram History of stress test Cardiology follow-up encounter History of irregular heartbeat Hypertension Osteoporosis Dysphagia Home Medications ?Medication ?Instructions ?Recorded ?Last Taken ?Type atorvastatin 20 mg tablet 20 mg PO DAILY 10/08/22 03/07/24 History escitalopram oxalate 20 mg tablet 20 mg PO DAILY 10/08/22 03/08/24 History triamterene 37.5 1 cap PO DAILY 10/08/22 03/07/24 History mg-hydrochlorothiazide 25 mg capsule peg 3350-electrolytes 236 240 ml PO Q10M #4,000 mL 02/16/24 03/07/24 Rx gram-22.74 gram-6.74 gram-5.86 gram solution (Golytely) cholecalciferol (vitamin D3) 25 50 mcg PO DAILY 05/31/24 Unknown History mcg (1,000 unit) capsule cyanocobalamin (vitamin B-12) 50 50 mcg PO QDAY 05/31/24 Unknown History mcg lozenges pantoprazole 20 mg tablet,delayed 20 mg PO DAILY #90 tabs 07/14/24 Unknown Rx release Allergy/AdvReac Type Severity Reaction Status Date / Time metoprolol (From Toprol XL) Allergy Severe Other Verified 07/25/24 15:04 morphine Allergy Severe Rash Verified 07/25/24 15:04 Surgical History Hx of colonoscopy with polypectomy Hx of esophagogastroduodenoscopy History of cardiac catheterization History of laparoscopic cholecystectomy History of bunionectomy Hx of hemorrhoidectomy Hx of tubal ligation Hx of surgical procedure Social History Smoking Status: Former smoker Recommendation Anesthesia Recommendation Anesthesia recommendation: OPTIMIZED for anesthesia
[2024-07-27 08:30] VITALS: BP 140/70; PULSE 77; RESP 16; TEMP 37.2; O2SAT 98; BMI 29.2
--- NOTE | 2024-07-27 08:30 | PRE.ANES_ITS ---
ASA Classification* ASA Classification ASA Classification: 2 Assessment & Plan Anesthesia* Anesthesia Assessment Anesthesia Assessment: Discussed sedation and/or anesthesia options, risks, benefits, and alternatives with patient/parents/legal guardian/POA. Questions invited. The patient/parents/legal guardian/POA seems to understand and agrees to proceed with anesthesia plan. Reviewed the physical assessment, medical history, allergy history and patient home medications list prior to surgery/procedure/anesthetic and documented any changes. Performed airway and anesthesia risk assessments. Anesthesia Type Anesthesia Type: MAC Anesthesia Focused Assessment* Airway Assessment Mouth opens: >3 cm Mallampati Score: II Focused Labs Anesthesia Preop lab: CBC WBC 10.2 K/mm3 (4.4-11.0) 05/31/24 11:56 RBC 4.33 M/mm3 (4.2-5.4) 05/31/24 11:56 Hgb 12.9 g/dL (12.0-15.0) 05/31/24 11:56 Hct 39.5 % (37-47) 05/31/24 11:56 Plt Count 302 K/mm3 (150-450) 05/31/24 11:56 CHEMISTRY TSH 1.65 uIU/mL (0.358-3.74) 01/02/23 15:44 COAG Pre-Assessment Diagnosis/Proposed Procedure Planned Operative Procedure(s): EGD Anesthesia History Anesthesia History - vice president digital strategist: Anesthesia History - vice president digital strategist Hx Hospitalization No 07/25/24 15:06 Any Problems With Anesthesia No 07/25/24 15:06 Cholinesterase deficiency No 07/25/24 15:06 You/Your Family Experience No 07/25/24 15:06 fever (hyperthermia) with Relationship Recent Exposure to Contagious No 03/08/24 11:06 Disease Does patient have nerve No 07/25/24 15:06 stimulator Patient instructed to have device shut off --Does patient have Pacemaker or ICD? When Was Last Pacemaker Check QUESTION #4 FULL TEXT: You/Your Family Experience fever (hyperthermia) with Anesthesia Last Oral Intake Last Oral intake: Last Oral Intake NPO since Meds taken in AM with sips of water? Meds patient instructed to take am of surgery PONV PONV - vice president digital strategist: PONV - vice president digital strategist Female Yes 07/25/24 15:06 HX of Motion Sickness No 07/25/24 15:06 HX of N/V After Surgery No 07/25/24 15:06 Non-Smoker Yes 07/25/24 15:06 Duration of Surgery greater No 07/25/24 15:06 than 60 minutes Number of Risk Factors 2 07/25/24 15:06 PONV Score Moderate Risk 07/25/24 15:06 Height & Weight Height & Weight: Anesthesia: Height & Weight Height 5 ft 3 in 03/08/24 11:06 Respiratory Assessment Respiratory Assessment - vice president digital strategist: Respiratory Tract Infection Hx - vice president digital strategist Hx Respiratory Tract Infection No 07/25/24 15:06 STOP Sleep Apnea STOP Sleep Apnea - vice president digital strategist: STOP Sleep Apnea - vice president digital strategist Hx Hypertension Yes: CONTROLLED ON MED 07/25/24 15:06 Hx Sleep Apnea No 07/25/24 15:06 CPAP No 07/25/24 15:06 BIPAP No 07/25/24 15:06 Do you snore loudly (louder No 07/25/24 15:06 than talking or can be heard Do you often feel tired/ No 07/25/24 15:06 fatigued/ sleepy during daytime? Has anyone observed you stop No 07/25/24 15:06 breathing during sleep? STOP Results Negative 07/25/24 15:06 QUESTION #5 FULL TEXT : Do you snore loudly (louder than talking or can be heard through closed doors)? Tobacco Use History Tobacco Use History - vice president digital strategist: Tobacco Use History - vice president digital strategist Tobacco Use Smoking Status Former smoker 07/25/24 15:06 Hx Tobacco Use No 07/25/24 15:06 Years Smoking Packs Smoked per Day Smoking Cessation Date was No - quit smoking greater 07/25/24 15:06 within the last 15 years than 15 years ago Hx Smoking Cessation Date 07/13/82 07/25/24 15:06 Hx Smoking Cessation Counseling Hematologic Medial History Hematologic Hx - vice president digital strategist: Hematologic Medical Hx - telephone claims representative Hx of Blood Transfusion No 07/25/24 15:06 Hx of Transfusion in last 3 No 07/25/24 15:06 Months Date of Last Transfusion (if within last 3 months) Ever experience any problems No 07/25/24 15:06 with transfusion(s)? Specify any problems Hx of Preganancy in last 3 N/A 07/25/24 15:06 Months Nurse Filling Out Transfusion NBUCHER 07/25/24 15:06 & Questions: Date: 07/25/24 07/25/24 15:06 Time: 15:07 07/25/24 15:06 Patient unable to answer at this time (ie. confused, unrespo /Reproduction History /Reproductive History - vice president digital strategist: /Reproductive Hx- vice president digital strategist Hx Now Gestational Age (in weeks): EDC: Hx Hx Para Hx Section SAB No 07/25/24 15:06 PFSH Medical History Constipation Essential tremor Wears hearing aid Wears glasses Depression Anxiety Arthritis History of hiatal hernia Gastric reflux Former smoker Shortness of breath on exertion History of edema History of echocardiogram History of stress test Cardiology follow-up encounter History of irregular heartbeat Hypertension Osteoporosis Dysphagia Home Medications ?Medication ?Instructions ?Recorded ?Last Taken ?Type atorvastatin 20 mg tablet 20 mg PO DAILY 10/08/22 07/26/24 History escitalopram oxalate 20 mg tablet 20 mg PO DAILY 10/08/22 07/26/24 History triamterene 37.5 1 cap PO DAILY 10/08/22 07/26/24 History mg-hydrochlorothiazide 25 mg capsule peg 3350-electrolytes 236 240 ml PO Q10M #4,000 mL 02/16/24 03/07/24 Rx gram-22.74 gram-6.74 gram-5.86 gram solution (Golytely) cholecalciferol (vitamin D3) 25 50 mcg PO DAILY 05/31/24 07/26/24 History mcg (1,000 unit) capsule cyanocobalamin (vitamin B-12) 50 50 mcg PO QDAY 05/31/24 Unknown History mcg lozenges pantoprazole 20 mg tablet,delayed 20 mg PO DAILY #90 tabs 07/14/24 07/26/24 Rx release Allergy/AdvReac Type Severity Reaction Status Date / Time metoprolol (From Toprol XL) Allergy Severe Other Verified 07/27/24 08:29 morphine Allergy Severe Rash Verified 07/27/24 08:29 Surgical History Hx of colonoscopy with polypectomy Hx of esophagogastroduodenoscopy History of cardiac catheterization History of laparoscopic cholecystectomy History of bunionectomy Hx of hemorrhoidectomy Hx of tubal ligation Hx of surgical procedure Social History Smoking Status: Former smoker Review of Systems (Anesthesia) ROS Narrative System reviewed and no additional complaints, except as documented.
--- NOTE | 2024-07-27 08:34 | HP.PCM_ITS ---
HPI - General General Date of Admission: 07/27/24 Date of Service: 07/27/24 Chief Complaint: dysphagia HPI Narrative AMANDA MALIK, is a 79 F who presents for dysphagia and early satiety. States her swallowing is not good again. Continues to take Pantoprazole for heartburn. Says she has had loss of appetite recently and has been eating junk to get more calories in. Denies postprandial abdominal pain or bloating. Has trouble with constipation. Has a BM every 3-4 days followed by diarrhea. *BGI established 01.02.23 GERD and dysphagia has been present to many years with worsening. Prefers to avoid medication use. Dysphagia with food. ? Biochemical ESR, CRP, LDH, LUIS, TSH, T3, T4, RAST, GAME, ANCA, HEMANTH comp, celiac, EBV without pertinent abnormality. ? CMV + ? Modified Barium 02.03.23 esophageal dysphagia. No need for ST. ? EGD 04.15.23 LA Grade B esophagitis, focal parakeratosis; moderate Schatzki ring, Savary 54F; small hiatal hernia. Metaplasia neg. OC 05.28.23 reports that she is doing very well at this time. Her PPI prescription was not refilled; no current issues with reflux. Reports high risk of colon cancer, mother diagnosed age 61. Her last colonoscopy with one TA and one benign polyp removed. Colonoscopy 03.08.24; - Diverticulosis in the recto-sigmoid colon, in the sigmoid colon, in the descending colon, at the splenic flexure, at the hepatic flexure and in the ascending colon. - One 6 mm polyp in the transverse colon, removed with a cold snare. Resected and retrieved. - The examination was otherwise normal on direct and retroflexion views OV 05.31.24 Pt reports a loss of appetite over the past 3 months. Since October 2023 pt has had a 20 lbs weight loss unintentionally. She is very concerned by this as she has always loved to eat food. She has been getting no more than 900 calories per day. She sometimes will have to eat junk food to get in calories. She is drinking a protein shake daily. She is not having issues with swallowing at this point. She continues taking pantoprazole daily. [facility] Medical History Constipation Essential tremor Wears hearing aid Wears glasses Depression Anxiety Arthritis History of hiatal hernia Gastric reflux Former smoker Shortness of breath on exertion History of edema History of echocardiogram History of stress test Cardiology follow-up encounter History of irregular heartbeat Hypertension Osteoporosis Dysphagia Home Medications ?Medication ?Instructions ?Recorded ?Last Taken ?Type atorvastatin 20 mg tablet 20 mg PO DAILY 10/08/22 07/26/24 History escitalopram oxalate 20 mg tablet 20 mg PO DAILY 10/08/22 07/26/24 History triamterene 37.5 1 cap PO DAILY 10/08/22 07/26/24 History mg-hydrochlorothiazide 25 mg capsule peg 3350-electrolytes 236 240 ml PO Q10M #4,000 mL 02/16/24 03/07/24 Rx gram-22.74 gram-6.74 gram-5.86 gram solution (Golytely) cholecalciferol (vitamin D3) 25 50 mcg PO DAILY 05/31/24 07/26/24 History mcg (1,000 unit) capsule cyanocobalamin (vitamin B-12) 50 50 mcg PO QDAY 05/31/24 Unknown History mcg lozenges pantoprazole 20 mg tablet,delayed 20 mg PO DAILY #90 tabs 07/14/24 07/26/24 Rx release Allergy/AdvReac Type Severity Reaction Status Date / Time metoprolol (From Toprol XL) Allergy Severe Other Verified 07/27/24 08:29 morphine Allergy Severe Rash Verified 07/27/24 08:29 Surgical History Hx of colonoscopy with polypectomy Hx of esophagogastroduodenoscopy History of cardiac catheterization History of laparoscopic cholecystectomy History of bunionectomy Hx of hemorrhoidectomy Hx of tubal ligation Hx of surgical procedure Social History Smoking Status: Former smoker ROS Constitutional Constitutional: Denies fatigue, fever(s), poor appetite, weight gain or weight loss Gastrointestinal Gastrointestinal: Denies belching, bloating, change in bowel habits, change in stool character, chewing difficulty, coffee ground emesis, constipation, cramping, diarrhea, dyspepsia, dysphagia, early satiety, excessive flatus, fecal incontinence, heartburn, hematemesis, hematochezia, hemorrhoids, loose stools, melena, nausea, odynophagia, rectal bleeding, tenesmus, vomiting or weight changes Physical Exam Const alert, oriented x3, no apparent distress and healthy appearing General Appearance: cooperative GI normal to inspection, nondistended, normoactive bowel sounds, soft to palpation, non-tender and non-distended Percussion: normal to percussion Rectal Exam: deferred Assessment & Plan Assessment/Plan (1) Loss of appetite: (2) Screen for colon cancer: (3) Dysphagia: QUALIFIERS: Dysphagia type: esophageal phase Qualified Code(s): R13.19 - Other dysphagia PLAN: Plan (1) Loss of appetite: Status: Acute Plan: This is a 79 yo female pt here today for f/u. She has not been seen in the office since 2022. For 3 months now she has had anorexia with weight loss. She has some abdominal discomfort and bloating but no other symptoms. This is very unlike her and she is very concerned. She will need to undergo EGD to evaluate for GERD, stricture, malignancy or gastroparesis. Most recent blood work from 04.26.24 was all wnl. I will order CBC to monitor for any changes. She is agreeable to plan. -EGD -CBC -Continue PPI
--- NOTE | 2024-07-27 09:30 | EGD_PTH ---
PATIENT: AMANDA MALIK LOC: EN U#:[id number] AGE/SX: 79/F ROOM: RE07/27/[address]: Dr. Cam Cain DO : 1945 BED: DIS: 07/27/2024 SPEC #: [id number] RECD: 07/27/24 10:41 STATUS: DALIA REShadia #: [id number] ALAINA: 07/27/24 09:[address]: Cam Cain DEPT: SURGICAL PATHOLOGY RECD BY: Veronica Merlos ENTERED: 07/27/24 11:18 SP TYPE: EGD BIOPSY CAROLYN DR: Dr. Zaina Landry MD Tissues: A - Duodenum, NOS B - Esophagus, NOS Procedures: Special Stain Group I Surgery Specimen Level IV Alcian Blue/PAS (control) HEADER OPERATION: EGD, biopsy, dilation PRE-OP DIAGNOSIS: Loss of appetite, screen for colon cancer, dysphagia TISSUE SUBMITTED: A- Duodenum biopsy, B- Distal esophagus biopsy MICROSCOPIC DIAGNOSIS A. Duodenum, biopsy: Fragments of duodenal mucosa with mild Annette's gland hyperplasia and focal gastric metaplasia. B. Distal esophagus, biopsy: A fragment of gastroesophageal mucosa with minimal chronic inflammation. Intestinal metaplasia (goblet cell metaplasia) not identified. See comment. SJ.mr 07/28/2024 COMMENT B. Alcian blue/PAS stain with matched control is used in the evaluation of the specimen. The specimen predominantly consists of squamous mucosa. MICROSCOPIC DESCRIPTION Slides are reviewed. GROSS DESCRIPTION A. Received in fixative is one container labeled with the patient's name and designated Duodenum biopsy. The specimen consists of multiple irregular fragments of light castillo soft tissue that in aggregate measure 1.2 x 0.3 x 0.2 cm. The specimen is totally submitted in one cassette. B. Received in fixative is one container labeled with the patient's name and designated Distal esophagus biopsy. The specimen consists of one irregular fragment of light castillo soft tissue that measures 0.6 x 0.3 x 0.2 cm. The specimen is totally submitted in one cassette. BW.mr 07/27/2024 TC:5 CPT:08495m1,42454
[2024-07-27 09:45] VITALS: BP 140/70; BP 82/53; PULSE 66; RESP 16; TEMP 36.6; O2SAT 95
--- NOTE | 2024-07-27 09:46 | OP.EGD_ITS ---
Patient Name: Renee Guevara Procedure Date: 07/27/2024 9:25 AM Date of : 1945 Age: 79 Procedure: Upper GI endoscopy Indications: Epigastric abdominal pain, Dysphagia Providers: Cam Cain DO Referring MD: Cam Cain DO Medicines: Monitored Anesthesia Care Patient Profile: This is a 79 year old female. Refer to note in patient chart for documentation of history and physical. Patient has symptoms of dysphagia with solids. Complications: No immediate complications. Procedure: Pre-Anesthesia Assessment: - Prior to the procedure, a History and Physical was performed, and patient medications and allergies were reviewed. The patient is competent. The risks and benefits of the procedure and the sedation options and risks were discussed with the patient. All questions were answered and informed consent was obtained. Patient identification and proposed procedure were verified by the physician in the pre-procedure area. Mental Status Examination: alert and oriented. Airway Examination: normal oropharyngeal airway and neck mobility. Respiratory Examination: clear to auscultation. CV Examination: normal. Prophylactic Antibiotics: The patient does not require prophylactic antibiotics. Prior Anticoagulants: The patient has taken no anticoagulant or antiplatelet agents. ASA Grade Assessment: II - A patient with mild systemic disease. After reviewing the risks and benefits, the patient was deemed in satisfactory condition to undergo the procedure. The anesthesia plan was to use monitored anesthesia care (MAC). Immediately prior to administration of medications, the patient was re-assessed for adequacy to receive sedatives. The heart rate, respiratory rate, oxygen saturations, blood pressure, adequacy of pulmonary ventilation, and response to care were monitored throughout the procedure. The physical status of the patient was re-assessed after the procedure. After obtaining informed consent, the endoscope was passed under direct vision. Throughout the procedure, the patient's blood pressure, pulse, and oxygen saturations were monitored continuously. The gastroscope was introduced through the mouth, and advanced to the second part of duodenum. The upper GI endoscopy was accomplished without difficulty. The patient tolerated the procedure well. Scope In: 9:32:49 AM Scope Out: 9:37:30 AM Total Procedure Duration Time 0 hours 4 minutes 41 seconds Findings: One benign-appearing, intrinsic moderate stenosis was found 19 to 22 cm from the incisors. This stenosis measured 8 mm (inner diameter) x 4 cm (in length). The stenosis was traversed. A guidewire was placed and the scope was withdrawn. Dilation was performed with a Savary dilator with no resistance at 57 Fr. The dilation site was examined and showed moderate mucosal disruption. Estimated blood loss was minimal. The Z-line was irregular and was found 40 cm from the incisors. Biopsies were taken with a cold forceps for histology. Verification of patient identification for the specimen was done. Estimated blood loss was minimal. A medium-sized hiatal hernia was present. No other significant abnormalities were identified in a careful examination of the stomach. Diffuse mild inflammation characterized by granularity was found in the duodenal bulb and in the first portion of the duodenum. Biopsies were taken with a cold forceps for histology. Verification of patient identification for the specimen was done. Estimated blood loss was minimal. Impression: - Benign-appearing esophageal stenosis. Dilated. - Z-line irregular, 40 cm from the incisors. Biopsied. - Medium-sized hiatal hernia. - Bile duodenitis. Biopsied. Recommendation: - Discharge patient to home. - Resume previous diet. - Continue present medications. - Await pathology results. Procedure Code(s): --- Professional --- 10361, Esophagogastroduodenoscopy, flexible, transoral; with insertion of guide wire followed by passage of dilator(s) through esophagus over guide wire 96703, 59,51, Esophagogastroduodenoscopy, flexible, transoral; with biopsy, single or multiple CPT copyright 2021 [employer]. All rights reserved. The codes documented in this report are preliminary and upon buggyman review may be revised to meet current compliance requirements. Cam Cain DO 07/27/2024 9:46:03 AM This report has been signed electronically. Number of Addenda: 0 Note Initiated On: 07/27/2024 9:25 AM
--- NOTE | 2024-07-27 09:46 | OP.CCLET_ITS ---
07/27/2024 [facility] Re : Upper GI endoscopy procedure for Renee Guevara Dear This procedure was performed on Saturday, July 27, 2024. My impressions and recommendations are as follows: Impressions : - Benign-appearing esophageal stenosis. Dilated. - Z-line irregular, 40 cm from the incisors. Biopsied. - Medium-sized hiatal hernia. - Bile duodenitis. Biopsied. Recommendations : - Discharge patient to home. - Resume previous diet. - Continue present medications. - Await pathology results. My findings are described in the full procedure note, which is enclosed. If I can be of further assistance, please feel free to contact me at . Sincerely, Cam Cain, 07/27/2024 9:46:03 AM This report has been signed electronically.
--- NOTE | 2024-07-27 09:49 | PCM.POST.ANE ---
Anesthesia: Postop Eval I Current Vital Signs Temperature: 97.8 F Pulse Rate: 72 Blood Pressure: 82/53 Respiratory Rate: 16 Pulse Ox: 97 Oxygen Delivery Method: Room Air Assessment Airway patent: Yes Spontaneous unlabored respirations: Yes Mental status: Awake and Calm nausea: No Vomiting: No Anesthesia Complication: No Fluid Hydration Crystalloid volume administer (ml): 30 Total IV fluid infused: 30 Progress Note Anesthesia document: Postop Eval 1 completed: Yes
[2024-07-27 09:50] VITALS: BP 140/70; BP 82/53; BP 84/59; PULSE 66; PULSE 72; RESP 16; TEMP 36.6; O2SAT 95; O2SAT 97
[2024-07-27 09:55] VITALS: BP 140/70; BP 96/65; PULSE 67; RESP 16; O2SAT 96
[2024-07-27 10:00] VITALS: BP 140/70; BP 99/62; PULSE 64; RESP 16; TEMP 36.1; O2SAT 94
[2024-07-27 10:22] VITALS: BP 140/70
--- NOTE | 2024-07-27 12:59 | PCM.POSTANE2 ---
Anesthesia Postop Eval I Sum Postop Eval Completion status Anesthesia document: Postop Eval 1 completed: Yes Anesthesia Postop Eval I Summary Anesthesia Postop Eval I Summary: Anesthesia Postop Eval I: Assessment Summary Airway patent Yes 07/27/24 09:50 [email or web address] Spontaneous unlabored Yes 07/27/24 09:50 [email or web address] respirations Mental status Awake,Calm 07/27/24 09:50 [email or web address] nausea No 07/27/24 09:50 [email or web address] Vomiting No 07/27/24 09:50 [email or web address] Anesthesia Postop Eval I: Fluid Summary Crystalloid volume administer 30 07/27/24 09:50 [email or web address] (ml) Colloids volume administered ( ml) Blood Product volume administered (ml) Total IV fluid infused 30 07/27/24 09:50 [email or web address] Anesthesia Postop Eval I: Summary Notes Anesthesia Complication No 07/27/24 09:50 [email or web address] Anesthesia Complication Comment: Post-operative progress note Anesthesia: Postop Eval II Evaluation Mental status: Awake Pain Level: 0 nausea: No Vomiting: No
== END 2024-07-27 10:28 | disposition home or self-care (01) ==
LOC: EN 08:11 → AC 08:12
PROVIDERS: PCP Internal Medicine; Referring Provider Internal Medicine Gastroenterology; Visit Provider Internal Medicine Gastroenterology
PROC: 0DJ08ZZ Inspection of Upper Intestinal Tract, Via Natural or Artificial Opening Endoscopic (ICD-10-PCS; CPT 43235; principal; 2024-07-27 09:25)
DX: K22.2 Esophageal obstruction (principal); K44.9 Diaphragmatic hernia without obstruction or gangrene; R13.10 Dysphagia, unspecified; K31.89 Other diseases of stomach and duodenum; K21.9 Gastro-esophageal reflux disease without esophagitis; Z79.899 Other long term (current) drug therapy; Z87.891 Personal history of nicotine dependence
CPT/HCPCS: 43239; 43248; 88305; 88312; C1769; J2405